=== PATIENT | female | born 1950 | race Two or more races ===

== ENCOUNTER 2017-02-15 10:19 | Emergency (ER) | payer OTHER ==
[~2017-02-15] VITALS: Ht 152.4 cm; Wt 40.4 kg
[~2017-02-15 10:19] MED LIST: AZITHROMYCIN250 M1 PO; AZU500 PO; AZULFIDINE500 MG PO; FER300 PO; FOLIC ACID1 MG PO; LAC PO
[2017-02-15 11:43] LABS: BASOPHIL % 0.7 % (0-2); PLATELET COUNT 265 x10^3mcL (130-400)
[2017-02-15 11:44] LABS: RED CELL DISTRIBUTION WIDTH 14.8 % (11.5-14.5)
[2017-02-15 12:00] LABS: microscopic required? YES; urine erythrocyte 1+ (NEGATIVE)
[2017-02-15 12:04] LABS: CALCIUM 9.4 mg/dL (8.5-10.1); CARBON DIOXIDE 29.2 mmol/L (21-32); POTASSIUM SERUM 4.2 mmol/L (3.5-5.1)
[2017-02-15 12:08] LABS: ALBUMIN 3.7 g/dL (3.4-5.0); BILIRUBIN TOTAL 0.38 mg/dL (0.20-1.00)
[2017-02-15 12:09] LABS: TOTAL PROTEIN, SERUM 8.7 g/dL (6.4-8.2)
[2017-02-15 12:50] VITALS: BP 131/64
== END 2017-02-15 14:16 | disposition home or self-care (01) ==
LOC: ED 10:19
PROVIDERS: Emergency Medicine
DX: E86.0 Dehydration (principal); R19.7 Diarrhea, unspecified; Z88.5 Allergy status to narcotic agent
CPT/HCPCS: J7030

== ENCOUNTER 2017-03-18 06:49 | Emergency (ER) | payer OTHER ==
[2017-03-18 08:03] LABS: BASOPHIL % 0.4 % (0-2); PLATELET COUNT 313 x10^3mcL (130-400); RED CELL DISTRIBUTION WIDTH 13.9 % (11.5-14.5)
[2017-03-18 08:06] LABS: CALCIUM 9.5 mg/dL (8.5-10.1); CARBON DIOXIDE 28.3 mmol/L (21-32); CHLORIDE SERUM 102 mmol/L (98-107); CREATININE SERUM 0.9 mg/dL (0.6-1.0); GFR1 > 60 mL/min; GLUCOSE SERUM 98 mg/dL (74-106); POTASSIUM SERUM 4.2 mmol/L (3.5-5.1); SODIUM SERUM 138 mmol/L (136-145)
[2017-03-18 08:10] LABS: ALBUMIN 3.3 g/dL (3.4-5.0); ALKALINE PHOSPHATASE 102 U/L (46-116); ALT/SGPT 19 U/L (14-59); AST/SGOT 19 U/L (15-37); BILIRUBIN TOTAL 0.32 mg/dL (0.20-1.00); LIPASE 133 IU/L (73-393); TOTAL PROTEIN, SERUM 8.2 g/dL (6.4-8.2)
[2017-03-18 08:22] VITALS: BP 126/57
== END 2017-03-18 09:00 | disposition home or self-care (01) ==
LOC: ED 06:49
PROVIDERS: Emergency Medicine
DX: E86.0 Dehydration (principal); K51.90 Ulcerative colitis, unspecified, without complications; Z88.5 Allergy status to narcotic agent
CPT/HCPCS: 83880; J7040

== ENCOUNTER 2017-05-20 04:48 | Emergency (ER) | payer OTHER, MEDICAID ==
[~2017-05-20] VITALS: Ht 149.9 cm; Wt 40.9 kg
[2017-05-20 05:57] LABS: microscopic required? NO
[2017-05-20 06:10] LABS: BASOPHIL % 0.6 % (0-2); PLATELET COUNT 284 x10^3mcL (130-400)
[2017-05-20 06:11] LABS: RED CELL DISTRIBUTION WIDTH 14.9 % (11.5-14.5)
[2017-05-20 06:11] LABS: UA SPECIFIC GRAVITY <=1.005 (1.005-1.035); urine erythrocyte NEGATIVE (NEGATIVE)
[2017-05-20 06:22] LABS: CALCIUM 9.1 mg/dL (8.5-10.1); CARBON DIOXIDE 27.7 mmol/L (21-32); POTASSIUM SERUM 3.6 mmol/L (3.5-5.1)
[2017-05-20 06:27] LABS: ALBUMIN 2.9 g/dL (3.4-5.0); BILIRUBIN TOTAL 0.3 mg/dL (0.20-1.00); TOTAL PROTEIN, SERUM 7.7 g/dL (6.4-8.2)
[2017-05-20 07:13] VITALS: BP 118/64
== END 2017-05-20 07:35 | disposition home or self-care (01) ==
LOC: ED 04:48
PROVIDERS: Emergency Medicine
DX: R53.1 Weakness (principal); R19.7 Diarrhea, unspecified
CPT/HCPCS: J0500; J7030

== ENCOUNTER 2017-08-09 13:58 | Emergency (ER) | payer OTHER, MEDICAID ==
[2017-08-09 15:53] LABS: BASOPHIL % 0.8 % (0-2); PLATELET COUNT 256 x10^3mcL (130-400)
[2017-08-09 15:55] LABS: RED CELL DISTRIBUTION WIDTH 15.5 % (11.5-14.5)
[2017-08-09 15:56] LABS: CALCIUM 8.5 mg/dL (8.5-10.1); CARBON DIOXIDE 29.6 mmol/L (21-32); POTASSIUM SERUM 4.1 mmol/L (3.5-5.1)
[2017-08-09 16:30] VITALS: BP 124/76
== END 2017-08-09 16:52 | disposition home or self-care (01) ==
LOC: ED 13:58
PROVIDERS: Emergency Medicine
DX: R42 Dizziness and giddiness (principal); R11.0 Nausea; I10 Essential (primary) hypertension; Z88.5 Allergy status to narcotic agent
CPT/HCPCS: 36415; J8597; Q0162

== ENCOUNTER 2018-06-08 04:21 | Emergency (ER) | payer OTHER ==
[2018-06-08 06:20] VITALS: BP 125/75
== END 2018-06-08 06:20 | disposition home or self-care (01) ==
LOC: ED 04:21
DX: K51.90 Ulcerative colitis, unspecified, without complications (principal); Z88.5 Allergy status to narcotic agent; Z88.6 Allergy status to analgesic agent; Z90.89 Acquired absence of other organs
CPT/HCPCS: J2405

== ENCOUNTER 2018-08-22 23:22 | Emergency (ER) | payer OTHER ==
[~2018-08-22] VITALS: Ht 149.9 cm; Wt 42.6 kg
[2018-08-22 23:31] VITALS: Ht 149.9 cm; Wt 42.6 kg
[2018-08-23 00:31] LABS: BASOPHIL % 0.5 % (0-2); PLATELET COUNT 285 x10^3mcL (130-400); RED CELL DISTRIBUTION WIDTH 14.7 % (11.5-14.5)
[2018-08-23 00:33] LABS: CHLORIDE SERUM 105 mmol/L (98-107); CREATININE SERUM 0.9 mg/dL (0.6-1.0); GFR1 > 60 mL/min; GLUCOSE SERUM 139 mg/dL (74-106); POTASSIUM SERUM 3.6 mmol/L (3.5-5.1); SODIUM SERUM 139 mmol/L (136-145)
[2018-08-23 00:38] LABS: ALKALINE PHOSPHATASE 108 U/L (46-116); ALT/SGPT 25 U/L (14-59); AST/SGOT 25 U/L (15-37); BILIRUBIN TOTAL 0.19 mg/dL (0.20-1.00); CHOLESTEROL 251 mg/dL (<200); HDL CHOLESTEROL 112 mg/dL (40-60); MAGNESIUM 1.9 mg/dL (1.8-2.4); PHOSPHOROUS 2.4 mg/dL (2.5-4.9); TOTAL PROTEIN, SERUM 7.5 g/dL (6.4-8.2)
[2018-08-23 00:54] LABS: UA SPECIFIC GRAVITY <=1.005 (1.005-1.035); microscopic required? YES; urine erythrocyte TRACE (NEGATIVE)
[2018-08-23 07:53] VITALS: BP 138/89
== END 2018-08-23 07:53 | disposition home or self-care (01) ==
LOC: ED 23:22
PROVIDERS: Emergency Medicine
DX: R53.1 Weakness (principal); E86.0 Dehydration; R73.9 Hyperglycemia, unspecified; Z90.89 Acquired absence of other organs; Z88.5 Allergy status to narcotic agent; Z98.890 Other specified postprocedural states; Z88.8 Allergy status to other drugs, medicaments and biological substances
CPT/HCPCS: J7030; Q0092

== ENCOUNTER 2018-12-07 21:36 | Emergency (ER) | payer OTHER ==
[~2018-12-07] VITALS: Ht 149.9 cm; Wt 44.9 kg
[2018-12-07 21:52] VITALS: Ht 149.9 cm; Wt 44.9 kg
[2018-12-07 22:34] LABS: PLATELET COUNT 238 x10^3mcL (130-400); RED CELL DISTRIBUTION WIDTH 13.8 % (11.5-14.5)
[2018-12-07 22:35] LABS: BASOPHIL % 2.1 % (0-2)
[2018-12-07 23:04] LABS: CALCIUM 8.8 mg/dL (8.5-10.1); CARBON DIOXIDE 29.1 mmol/L (21-32); CHLORIDE SERUM 99 mmol/L (98-107); CREATININE SERUM 0.9 mg/dL (0.6-1.0); GFR1 > 60 mL/min; GLUCOSE SERUM 132 mg/dL (74-106); POTASSIUM SERUM 4.2 mmol/L (3.5-5.1); SODIUM SERUM 132 mmol/L (136-145)
[2018-12-07 23:11] LABS: ALKALINE PHOSPHATASE 65 U/L (46-116); ALT/SGPT 18 U/L (14-59); AMYLASE 104 U/L (25-115); AST/SGOT 17 U/L (15-37); BILIRUBIN TOTAL 0.2 mg/dL (0.20-1.00); LIPASE 120 IU/L (73-393); MAGNESIUM 1.8 mg/dL (1.8-2.4); TOTAL PROTEIN, SERUM 7.5 g/dL (6.4-8.2)
[2018-12-08 00:38] VITALS: BP 119/78
== END 2018-12-08 00:38 | disposition home or self-care (01) ==
LOC: ED 21:36
PROVIDERS: Emergency Medicine
DX: A08.4 Viral intestinal infection, unspecified (principal); I10 Essential (primary) hypertension; Z88.8 Allergy status to other drugs, medicaments and biological substances; Z88.5 Allergy status to narcotic agent; Z90.89 Acquired absence of other organs; Z98.890 Other specified postprocedural states
CPT/HCPCS: C9113; J2405; J2930; J7030

== ENCOUNTER 2019-01-08 19:17 | Emergency (ER) | payer OTHER ==
[~2019-01-08] VITALS: Ht 149.9 cm; Wt 44.5 kg
[2019-01-08 19:47] VITALS: Ht 149.9 cm; Wt 44.5 kg
[2019-01-08 21:08] LABS: BASOPHIL % 0.6 % (0-2); PLATELET COUNT 273 x10^3mcL (130-400)
[2019-01-08 21:12] LABS: RED CELL DISTRIBUTION WIDTH 15.2 % (11.5-14.5)
[2019-01-08 21:20] LABS: CALCIUM 8.8 mg/dL (8.5-10.1); CARBON DIOXIDE 28.5 mmol/L (21-32); CHLORIDE SERUM 103 mmol/L (98-107); CREATININE SERUM 0.9 mg/dL (0.6-1.0); GFR1 > 60 mL/min; GLUCOSE SERUM 105 mg/dL (74-106); POTASSIUM SERUM 3.5 mmol/L (3.5-5.1); SODIUM SERUM 139 mmol/L (136-145)
[2019-01-08 21:24] LABS: ALBUMIN 2.8 g/dL (3.4-5.0); ALKALINE PHOSPHATASE 94 U/L (46-116); ALT/SGPT 18 U/L (14-59); AST/SGOT 20 U/L (15-37); BILIRUBIN TOTAL 0.16 mg/dL (0.20-1.00); CHOLESTEROL 232 mg/dL (<200); CHOLESTEROL/HDL RATIO 2.9; HDL CHOLESTEROL 81 mg/dL (40-60); LIPASE 124 IU/L (73-393); TOTAL PROTEIN, SERUM 7.7 g/dL (6.4-8.2); TRIGLYCERIDES 101 mg/dL (<150)
[2019-01-08 21:39] LABS: T3 TOTAL 1.07 ng/mL
[2019-01-08 21:41] LABS: FREE T4 1.07 ng/dL (0.76-1.46); FREE THYROXINE INDEX 2.7 ug/dL (1.4-4.5); T4(THYROXINE) 8.2 ug/dL (4.7-13.3)
[2019-01-08 22:23] VITALS: BP 99/66
== END 2019-01-08 22:23 | disposition home or self-care (01) ==
LOC: ED 19:17
PROVIDERS: Specialist
DX: R19.7 Diarrhea, unspecified (principal); K51.90 Ulcerative colitis, unspecified, without complications; I10 Essential (primary) hypertension; Z98.890 Other specified postprocedural states; Z90.89 Acquired absence of other organs; Z88.5 Allergy status to narcotic agent; Z88.6 Allergy status to analgesic agent
CPT/HCPCS: 83880; 84439; 87046; 87046-59; 87804; J7030

== ENCOUNTER 2019-02-26 17:33 | Inpatient (IN) | payer OTHER ==
[~2019-02-26] VITALS: Ht 149.9 cm; Wt 43.3 kg
[2019-02-26 17:48] VITALS: Ht 149.9 cm; Wt 43.3 kg
[2019-02-26 18:25] LABS: BASOPHIL % 0.5 % (0-2); PLATELET COUNT 299 x10^3mcL (130-400); RED CELL DISTRIBUTION WIDTH 15.6 % (11.5-14.5)
[2019-02-26 18:33] LABS: CALCIUM 8.2 mg/dL (8.5-10.1); CARBON DIOXIDE 27.6 mmol/L (21-32); CHLORIDE SERUM 105 mmol/L (98-107); CREATININE SERUM 0.9 mg/dL (0.6-1.0); GFR1 > 60 mL/min; GLUCOSE SERUM 163 mg/dL (74-106); POTASSIUM SERUM 3.8 mmol/L (3.5-5.1); SODIUM SERUM 139 mmol/L (136-145)
[2019-02-26 18:45] LABS: ALKALINE PHOSPHATASE 100 U/L (46-116); ALT/SGPT 17 U/L (14-59); AST/SGOT 19 U/L (15-37); BILIRUBIN TOTAL 0.1 mg/dL (0.20-1.00); TOTAL PROTEIN, SERUM 6.8 g/dL (6.4-8.2)
[2019-02-26 18:46] LABS: ALBUMIN 2.5 g/dL (3.4-5.0)
[2019-02-26 19:48] LABS: microscopic required? NO
[2019-02-26 19:53] LABS: FREE T4 0.96 ng/dL (0.76-1.46)
[2019-02-26 20:01] LABS: UA SPECIFIC GRAVITY <=1.005 (1.005-1.035); urine erythrocyte NEGATIVE (NEGATIVE)
[2019-02-26 20:10] LABS: AMPHETAMINE QUAL UR NONE DETECTED (See below)
[2019-02-26] MEDS ORDERED: XELJANZ5 MG PO (20:20)
[2019-02-26] MEDS ORDERED: ZESTRIL5 MG PO (20:21)
[2019-02-26] MEDS ORDERED: NATURE'S BLEND F1 MG PO (20:21)
[2019-02-26] MEDS ORDERED: GOOD SENSE OMEP20 MG PO (20:22)
[2019-02-26] MEDS ORDERED: MASON NATURAL2000 IU PO (20:23)
[2019-02-26 21:30] LABS: CHOLESTEROL/HDL RATIO 2.6; MAGNESIUM 1.8 mg/dL (1.8-2.4); PHOSPHOROUS 2.7 mg/dL (2.5-4.9)
[2019-02-26 21:41] VITALS: BP 147/77
[2019-02-27 05:23] VITALS: BP 111/71
[2019-02-27 06:28] LABS: BASOPHIL % 0.6 % (0-2); PLATELET COUNT 241 x10^3mcL (130-400)
[2019-02-27 06:48] LABS: CALCIUM 7.7 mg/dL (8.5-10.1); CARBON DIOXIDE 26.6 mmol/L (21-32); CHLORIDE SERUM 110 mmol/L (98-107); CREATININE SERUM 0.7 mg/dL (0.6-1.0); GFR1 > 60 mL/min; GLUCOSE SERUM 87 mg/dL (74-106); MAGNESIUM 1.8 mg/dL (1.8-2.4); PHOSPHOROUS 3.4 mg/dL (2.5-4.9); POTASSIUM SERUM 4.4 mmol/L (3.5-5.1); SODIUM SERUM 141 mmol/L (136-145)
[2019-02-27 06:50] LABS: RED CELL DISTRIBUTION WIDTH 15.6 % (11.5-14.5)
[2019-02-27 09:01] VITALS: BP 134/79
[2019-02-27 12:21] VITALS: BP 122/70
[2019-02-27 16:41] VITALS: BP 129/79
[2019-02-27 16:57] VITALS: BP 129/79
== END 2019-02-27 18:01 | disposition home or self-care (01) | DRG 74 ==
LOC: ED 17:33 → DU 20:33
PROVIDERS: Emergency Medicine; ADMIT Internal Medicine
DX: G90.9 Disorder of the autonomic nervous system, unspecified (principal); E44.0 Moderate protein-calorie malnutrition; Z68.1 Body mass index [BMI] 19.9 or less, adult; K51.90 Ulcerative colitis, unspecified, without complications; R73.03 Prediabetes; E78.5 Hyperlipidemia, unspecified; D53.9 Nutritional anemia, unspecified; K21.9 Gastro-esophageal reflux disease without esophagitis; H40.9 Unspecified glaucoma
CPT/HCPCS: 83880; 84439; 87804; J7030

== ENCOUNTER 2019-06-17 09:44 | Emergency (ER) | payer OTHER ==
[~2019-06-17] VITALS: Ht 149.9 cm; Wt 43.1 kg
[~2019-06-17 09:44] MED LIST changes: +GOOD SENSE OMEP20 MG PO; +MASON NATURAL2000 IU PO; +NATURE'S BLEND F1 MG PO; +XELJANZ5 MG PO; +ZESTRIL5 MG PO
[2019-06-17 09:56] VITALS: Ht 149.9 cm; Wt 43.1 kg
[2019-06-17 11:12] LABS: BASOPHIL % 1.2 % (0-2); PLATELET COUNT 286 x10^3mcL (130-400)
[2019-06-17 11:13] LABS: microscopic required? NO
[2019-06-17 11:26] LABS: CALCIUM 9.6 mg/dL (8.5-10.1); CARBON DIOXIDE 29.5 mmol/L (21-32); CHLORIDE SERUM 103 mmol/L (98-107); CREATININE SERUM 0.9 mg/dL (0.6-1.0); GFR1 > 60 mL/min; GLUCOSE SERUM 91 mg/dL (74-106); POTASSIUM SERUM 3.7 mmol/L (3.5-5.1); SODIUM SERUM 140 mmol/L (136-145)
[2019-06-17 11:31] LABS: ALBUMIN 3.2 g/dL (3.4-5.0); ALKALINE PHOSPHATASE 97 U/L (46-116); ALT/SGPT 25 U/L (14-59); AST/SGOT 21 U/L (15-37); BILIRUBIN TOTAL 0.2 mg/dL (0.20-1.00); TOTAL PROTEIN, SERUM 8.5 g/dL (6.4-8.2)
[2019-06-17 11:51] LABS: UA SPECIFIC GRAVITY <=1.005 (1.005-1.035); urine erythrocyte NEGATIVE (NEGATIVE)
[2019-06-17 13:27] VITALS: BP 140/81
== END 2019-06-17 13:27 | disposition home or self-care (01) ==
LOC: ED 09:44
PROVIDERS: Emergency Medicine
DX: R53.1 Weakness (principal); I10 Essential (primary) hypertension; Z90.89 Acquired absence of other organs; Z90.49 Acquired absence of other specified parts of digestive tract; Z88.5 Allergy status to narcotic agent; Z88.8 Allergy status to other drugs, medicaments and biological substances
CPT/HCPCS: 36415; J7030